=== PATIENT | female | born 1955 | race Caucasian/White ===

== ENCOUNTER 2018-09-13 20:29 | Observation (INO) | payer BC ==
[~2018-09-13] VITALS: Ht 170.2 cm; Wt 113.5 kg
[~2018-09-13 20:29] MED LIST: B-121000 MC2 PO; BUPR150ER PO; CALTRATE GUMMY1 EACH PO; FIBER GUMMIES1 EACH PO; Homocysteine F1 EACH PO; MULTI VITAMIN1 EACH PO; OMEP20ER PO; Prinivil10 MG PO; Senna8.6 MG PO; THYROID COMPOUND PO; VITAMIN D35000 UNI1 PO
[2018-09-13] MEDS ORDERED: Budeprion Xl300 MG (20:48)
[2018-09-13 21:14] LABS: Alanine Aminotransfer (ALT/SGP 19 U/L (12-78); Albumin, Blood 3.4 g/dL (3.4-5.0); Albumin/Globulin Ratio 1.1 (0.8-1.8); Alk Phos 96 U/L (50-136); Anion Gap 6 mmol/L (6-16); Aspartate Aminotrans (AST/SGOT 13 U/L (12-37); Bilirubin, Total 0.1 mg/dL (0.1-1.0); Blood Urea Nitrogen 28 mg/dL (8-24); Bun/Creatinine Ratio 28.8 (12.0-20.0); CO2, Blood 23 mmol/L (21-32); Calcium, Blood 7.8 mg/dL (8.5-10.1); Chloride, Blood 109 mmol/L (98-108); Creatinine, Blood 0.97 mg/dL (0.40-1.00); Glomerular Filtration Rate >60 (60-); Glucose, Blood 157 mg/dL (70-99); Potassium, Blood 4.3 mmol/L (3.5-5.5); Sodium, Blood 138 mmol/L (136-145); Total Protein, Blood 6.4 g/dL (6.4-8.2)
[2018-09-13 21:17] LABS: BASOPHILS ABSOLUTE AUTO 0.06 K/mm3 (0.00-0.23); BASOPHILS PERCENT AUTO 1 % (0-2); EOSINOPHILS PERCENT AUTO 2 % (0-6); Hematocrit 28.9 % (33.0-51.0); Hemoglobin 8.7 g/dL (11.5-16.0); IMMATURE GRAN ABSOLUTE AUTO 0.02 K/mm3 (0.00-0.10); IMMATURE GRAN PERCENT AUTO 0 % (0-1); LYMPHOCYTES ABSOLUTE AUTO 1.72 K/mm3 (0.84-5.20); LYMPHOCYTES PERCENT AUTO 34 % (21-46); MONOCYTES ABSOLUTE AUTO 0.34 K/mm3 (0.16-1.47); MONOCYTES PERCENT AUTO 7 % (4-13); Mean Corpuscular HGB 25.7 pg (26.0-34.0); Mean Corpuscular HGB Conc 30.1 g/dL (31.5-36.5); Mean Corpuscular Volume 86 fL (80-100); Mean Platelet Volume 9.6 fL (9.1-12.4); NEUTROPHILS ABSOLUTE AUTO 2.89 K/mm3 (1.96-9.15); NEUTROPHILS PERCENT AUTO 56 % (41-73); Platelet Count 292 K/mm3 (150-400); RDW Coefficient Variation 13.5 % (11.7-14.2); RDW Standard Deviation 42.2 fL (35.1-46.3); Red Blood Cell Count 3.38 M/mm3 (3.80-5.20); White Blood Cell Count 5.13 K/mm3 (4.00-11.30)
[2018-09-14] MEDS ORDERED: ASPI325EC PO (00:34)
[2018-09-14] MEDS ORDERED: ACET500 PO (00:34)
[2018-09-14 01:52] LABS: Source, Urine Clean Catch
[2018-09-14 01:55] LABS: Bilirubin, Urine Neg (Neg); Blood, Urine Neg (Neg); Glucose Qualitative, Urine Neg (Neg); Ketones, Urine Neg (Neg); Leukocyte Esterase, Urine Neg (Neg); Nitrite, Urine Pos (Neg); Protein, Urine Neg (Neg); Specific Gravity, Urine 1.015 (1.003-1.022); Urobilinogen, Urine NORM (Normal)
[2018-09-14 02:09] LABS: Appearance, Urine Hazy (Clear); Bacteria Many /hpf; Color, Urine Yellow (P-Yellow); Red Blood Cells, Urine Not Seen /hpf (0-2); Squamous Epithelial Cells Few /hpf (Few); White Blood Cells, Urine 0-2 /hpf (0-5)
[2018-09-14 02:45] LABS: Hematocrit 27.5 % (33.0-51.0); Hemoglobin 8.4 g/dL (11.5-16.0); Mean Corpuscular HGB 26.1 pg (26.0-34.0); Mean Corpuscular HGB Conc 30.5 g/dL (31.5-36.5); Mean Corpuscular Volume 85 fL (80-100); Mean Platelet Volume 9.3 fL (9.1-12.4); Platelet Count 271 K/mm3 (150-400); RDW Coefficient Variation 13.5 % (11.7-14.2); RDW Standard Deviation 42.2 fL (35.1-46.3); Red Blood Cell Count 3.22 M/mm3 (3.80-5.20)
[2018-09-14 02:55] LABS: Alanine Aminotransfer (ALT/SGP 18 U/L (12-78); Albumin, Blood 3.2 g/dL (3.4-5.0); Albumin/Globulin Ratio 1.1 (0.8-1.8); Alk Phos 90 U/L (50-136); Anion Gap 9 mmol/L (6-16); Aspartate Aminotrans (AST/SGOT 14 U/L (12-37); Bilirubin, Total 0.2 mg/dL (0.1-1.0); Blood Urea Nitrogen 21 mg/dL (8-24); Bun/Creatinine Ratio 29.3 (12.0-20.0); CO2, Blood 23 mmol/L (21-32); Calcium, Blood 7.7 mg/dL (8.5-10.1); Chloride, Blood 111 mmol/L (98-108); Creatinine, Blood 0.72 mg/dL (0.40-1.00); Glomerular Filtration Rate >60 (60-); Glucose, Blood 133 mg/dL (70-99); Sodium, Blood 143 mmol/L (136-145); Total Protein, Blood 6.2 g/dL (6.4-8.2)
[2018-09-14 07:00] LABS: Hematocrit 27.4 % (33.0-51.0); Hemoglobin 8.4 g/dL (11.5-16.0); IMMATURE RETIC FRACTION 17.7 % (2.3-16.0); RETIC HGB EQUIVALENT 29.6 pg (28.20-36.60); RETICULOCYTE ABSOLUTE 0.0295 M/mm3 (0.0200-0.1100); RETICULOCYTE COUNT PERCENT 0.92 % (0.50-2.50)
[2018-09-14 07:23] LABS: Percent Saturation 5.7 % (15.0-50.0)
[2018-09-14 10:34] LABS: Free Thyroxine 0.77 ng/dL (0.70-1.60)
[2018-09-14 10:36] LABS: Thyroid Stimulating Hormone 0.266 uIU/mL (0.360-4.800); Triiodothyronine, Free 2.44 pg/mL (2.18-3.98)
[2018-09-14 14:36] LABS: Hematocrit 28.4 % (33.0-51.0); Hemoglobin 8.6 g/dL (11.5-16.0)
[2018-09-14] MEDS ORDERED: FERRLECIT62.5 MG/5 IV (18:14)
[2018-09-14] MEDS ORDERED: OMEPRAZOLE MAGN20 MG PO (18:14)
[2018-09-14] MEDS ORDERED: LEVO750 PO (18:14)
== END 2018-09-14 18:43 | disposition home or self-care (01) ==
LOC: ER 20:29 → SURS 22:44
PROVIDERS: Emergency Medicine; Family Medicine; Internal Medicine
DX: I95.9 Hypotension, unspecified (principal); R79.1 Abnormal coagulation profile; D50.9 Iron deficiency anemia, unspecified; I10 Essential (primary) hypertension; E03.9 Hypothyroidism, unspecified; Z79.899 Other long term (current) drug therapy; Z88.0 Allergy status to penicillin; Z88.1 Allergy status to other antibiotic agents; Z88.5 Allergy status to narcotic agent; Z23 Encounter for immunization
CPT/HCPCS: 36415; 71045; 71260; 80053; 81001; 82728; 83540; 83550; 84145; 84439; 84443; 84481; 84484; 85014; 85018; 85025; 85027; 85045; 85379; 87077; 87086; 87186; 90686; 93005; 93010; 96360; 96361; 96365; 96366; 96367; 96372; 99285-25; G0008; G0378; J0696; J1650; J2916; J7030; Q9967

== ENCOUNTER 2018-09-15 10:42 | Day surgery (SDC) | payer BC ==
[~2018-09-15 10:42] MED LIST changes: +ACET500 PO; +ASPI325EC PO; +Budeprion Xl300 MG; +FERRLECIT62.5 MG/5 IV; +LEVO750 PO; +OMEPRAZOLE MAGN20 MG PO
== END 2018-09-15 11:59 | disposition home or self-care (01) ==
LOC: ATC 10:42
DX: D64.9 Anemia, unspecified (principal); Z88.0 Allergy status to penicillin; Z88.8 Allergy status to other drugs, medicaments and biological substances
CPT/HCPCS: 96365; J2916

== ENCOUNTER 2018-09-16 10:13 | Day surgery (SDC) | payer BC | END 2018-09-16 11:43 | disposition home or self-care (01) | LOC: ATC 10:13 | DX: D64.9 Anemia, unspecified (principal); Z88.0 Allergy status to penicillin; Z88.8 Allergy status to other drugs, medicaments and biological substances | CPT/HCPCS: 96365; J2916 ==

== ENCOUNTER 2018-09-17 09:30 | Day surgery (SDC) | payer BC | END 2018-09-17 11:35 | disposition home or self-care (01) | LOC: ATC 09:30 | DX: D64.9 Anemia, unspecified (principal); Z88.0 Allergy status to penicillin; Z88.8 Allergy status to other drugs, medicaments and biological substances | CPT/HCPCS: 96365; J2916 ==

== ENCOUNTER 2018-09-18 09:43 | Day surgery (SDC) | payer BC | END 2018-09-18 22:42 | disposition home or self-care (01) | LOC: ATC 09:43 | DX: D64.9 Anemia, unspecified (principal); Z88.0 Allergy status to penicillin; Z88.8 Allergy status to other drugs, medicaments and biological substances | CPT/HCPCS: 96365; J2916 ==

== ENCOUNTER 2021-07-29 11:13 | Day surgery (SDC) | payer BC ==
[~2021-07-29] VITALS: Ht 170.2 cm; Wt 124.4 kg
[~2021-07-29 11:13] MED LIST changes: +FIBER GUMMIES; +HYDCHL12.5 PO; +LISI20 PO; +MULTIPLE VITAM1 EACH PO; +SENNA LAXATIVE8.6 MG PO; +T3/T4 COMPOUND PO; +THYR60; +VITAMIN D325 MC3 PO; +Vitamin B-121000 MCG PO; +WELLBUTRIN PO; +ZOFRAN4 MG PO; +[UNRECOGNIZED DRUG - OTHER] PO
--- NOTE | 2021-07-29 12:29 | NUR ---
1 MISSED ATTEMPT BY ORD.KELLY DURAN
--- NOTE | 2021-07-29 13:28 | NUR ---
07/29/21 1328 Malinda Smith History, Chart, Medications and Allergies reviewed before start of procedure. Patient confirms NPO status and agrees with scheduled surgery. 3-LEAD EKG REVIEWED WITH PHYSICIAN PRIOR TO START OF PROCEDURE. MONITOR INTACT WITH CONTINUOUS PULSE OXIMETRY AND INTERMITTENT BP. PATIENT DETERMINED TO BE ASA APPROPRIATE FOR PROPOFOL SEDATION PRIOR TO START OF PROCEDURE BY DR. GROVER
--- NOTE | 2021-07-29 13:51 | NUR ---
Patient up to Ambulate independently. Gait steady. Discharge instructions reviewed with patient. Patient verbalizes understanding. Copy given to patient to take home. Discharged via wheelchair to private car for ride home.
== END 2021-07-29 22:52 | disposition home or self-care (01) ==
LOC: ORSCMMR 11:13 → ORSCSDS 13:00 → ORSCMMR 13:00 → ORD 13:00 → ORSCMMR 22:52
PROVIDERS: Surgery
PROC: 0DBM8ZX Excision of Descending Colon, Via Natural or Artificial Opening Endoscopic, Diagnostic (ICD-10-PCS; principal; 2021-07-29 13:00)
DX: Z12.11 Encounter for screening for malignant neoplasm of colon (principal); Z86.010 Personal history of colon polyps; Z80.0 Family history of malignant neoplasm of digestive organs; K63.5 Polyp of colon; F32.A Depression, unspecified; I10 Essential (primary) hypertension; E55.9 Vitamin D deficiency, unspecified; Z87.891 Personal history of nicotine dependence; E66.01 Morbid (severe) obesity due to excess calories; Z68.41 Body mass index [BMI] 40.0-44.9, adult; Z79.899 Other long term (current) drug therapy
CPT/HCPCS: 82947; 88305; J2704; J7120

== ENCOUNTER → 2022-07-25 | Outpatient (CLI) | payer BC ==
[2022-07-26 10:43] LABS: Hematocrit 38.9 % (33.0-51.0); Hemoglobin 12.4 g/dL (11.5-16.0); Mean Corpuscular HGB 31.1 pg (26.0-34.0); Mean Corpuscular HGB Conc 31.9 g/dL (31.5-36.5); Mean Corpuscular Volume 98 fL (80-100); Mean Platelet Volume 9.9 fL (9.1-12.4); Platelet Count 282 K/mm3 (150-400); RDW Coefficient Variation 12.6 % (11.7-14.2); RDW Standard Deviation 45.1 fL (35.1-46.3); Red Blood Cell Count 3.99 M/mm3 (3.80-5.20); White Blood Cell Count 4.55 K/mm3 (4.00-11.30)
== END ==
LOC: LAB 12:05 → LAB SHORT 12:05
PROVIDERS: Nurse Practitioner Family
DX: E03.9 Hypothyroidism, unspecified (principal); E78.5 Hyperlipidemia, unspecified; R73.01 Impaired fasting glucose; I10 Essential (primary) hypertension; D72.819 Decreased white blood cell count, unspecified; M25.50 Pain in unspecified joint
CPT/HCPCS: 85027